=== PATIENT | male | born 1960 | race Caucasian/White ===

== ENCOUNTER → 2017-06-04 | Outpatient (CLI) | payer MEDICAID ==
[~2017-06-04] MED LIST: ACET-1600 PO; IBUP200C5 PO
[2017-06-04 13:25] LABS: ASPARTATE AMINO TRANSFERASE 22 U/L (15-37); BLOOD UREA NITROGEN 30 mg/dL (7-18)
[2017-06-04 13:37] LABS: HEMATOCRIT 45.7 % (39.2-51.8); HEMOGLOBIN 15.6 g/dL (13.7-18.0); WHITE BLOOD COUNT 6.9 x10^3/uL (3.4-10)
[2017-06-04 14:04] LABS: HIV 1&2 ANTIBODY SCREEN Nonreactive (Nonreactive); HIV-1 p24 ANTIGEN Nonreactive (Nonreactive)
== END | disposition home or self-care (01) ==
LOC: STAR 12:08 → EDBD 12:30
PROVIDERS: ATTEND Orthopaedic Surgery
DX: Z01.818 Encounter for other preprocedural examination (principal); M16.12 Unilateral primary osteoarthritis, left hip; R79.1 Abnormal coagulation profile
CPT/HCPCS: 36415; 80053; 83036; 85025; 85610; 85730; 86703; 87081; 87899; 93005; G0435

== ENCOUNTER 2018-07-12 08:45 | Inpatient (IN) | payer MEDICAID ==
[~2018-07-12] VITALS: Ht 188 cm; Wt 90.6 kg
[~2018-07-12 08:45] MED LIST changes: +EPINEPHRINE 1 MG/ML, 1ML ONE; +IBUP-1623 PO; -IBUP200C5 PO; +KETOROLAC 60 MG/2 ML ONE; +METH500T7 PO; +ROPIvacaine/PF 0.2%, 20 ML ONE; +TRAM50TA2 PO; +TRANEXAMIC ACID 100 MG/ML, 10ML ONE
[2018-07-12] MEDS ORDERED: GABAPENTIN 300 MG CAPSULE PO STA (09:26)
[2018-07-12] MEDS ORDERED: ACETAMINOPHEN 500 MG TABLET PO STA (09:26)
[2018-07-12] MEDS ORDERED: LACTATED RINGERS 1,000 ML IV SCH (09:50)
[2018-07-12] MEDS ORDERED: FENTANYL PF 250 MCG/5ML ONE (10:39)
[2018-07-12] MEDS ORDERED: MIDAZOLAM 1 MG/ML, 2ML ONE (10:39)
[2018-07-12] MEDS ORDERED: MAGNESIUM HYDROXIDE 8%, 30ML UDC PO PRN (11:30)
[2018-07-12] MEDS ORDERED: ONDANSETRON 4 MG TABLET PO PRN (11:30)
[2018-07-12] MEDS ORDERED: TRANEXAMIC ACID 1,000 MG in SODIUM CHLORIDE 0.9% 100 ML IVPB ONE (11:30)
[2018-07-12] MEDS ORDERED: ONDANSETRON 2MG/ML, 2ML IV PRN ×2 (11:30→12:00)
[2018-07-12] MEDS ORDERED: PROMETHAZINE 25 MG/ML, 1ML IM PRN (11:30)
[2018-07-12] MEDS ORDERED: PROMETHAZINE 12.5 MG SUPP PR PRN (11:30)
[2018-07-12] MEDS ORDERED: BISACODYL 10 MG SUPP PR PRN (11:30)
[2018-07-12] MEDS ORDERED: HYDROmorphone 1 MG/ML, 1ML IV PRN (11:30)
[2018-07-12] MEDS ORDERED: DIPHENHYDRAMINE 50 MG CAPSULE PO PRN (11:30)
[2018-07-12] MEDS ORDERED: ALUMINUM/MAG/SIMETHICONE 30 ML UDC PO PRN (11:30)
[2018-07-12] MEDS ORDERED: ACETAMINOPHEN 650 MG/20.3 ML UDC PO PRN (11:30)
[2018-07-12] MEDS ORDERED: SENNA/DOCUSATE TABLET PO PRN (11:30)
[2018-07-12] MEDS ORDERED: ALBUTEROL/IPRATROPIUM 2.5MG/0.5MG, 3 ML NPPB PRN (12:00)
[2018-07-12] MEDS ORDERED: MIDAZOLAM 1 MG/ML, 2ML IV PRN (12:00)
[2018-07-12] MEDS ORDERED: hydrALAzine 20 MG/ML, 1ML IV PRN (12:00)
[2018-07-12] MEDS ORDERED: MEPERIDINE/PF 25MG/0.5ML IVPush PRN (12:00)
[2018-07-12] MEDS ORDERED: PROMETHAZINE 25 MG/ML, 1ML IV PRN (12:00)
[2018-07-12] MEDS ORDERED: HYDROmorphone 2 MG/ML, 1ML IVPush PRN (12:00)
[2018-07-12] MEDS ORDERED: LABETALOL 5MG/ML, 20ML IV PRN (12:00)
[2018-07-12] MEDS ORDERED: OXYcodone 5 MG/5 ML ORAL.SOL UDC PO PRN (12:00)
[2018-07-12] MEDS ORDERED: NEOSTIGMINE 1 MG/ML, 10ML ONE (12:39)
[2018-07-12] MEDS ORDERED: GLYCOPYRROLATE 0.2MG/1ML, 5ML ONE (12:39)
[2018-07-12] MEDS ORDERED: ROCURONIUM 10MG/ML,5ML ONE (12:39)
[2018-07-12] MEDS ORDERED: PROPOFOL 10 MG/ML, 20ML ONE (12:39)
[2018-07-12] MEDS ORDERED: ONDANSETRON 2MG/ML, 2ML ONE (12:39)
[2018-07-12] MEDS ORDERED: DEXAMETHASONE 4 MG/ML, 1ML ONE (12:39)
[2018-07-12] MEDS ORDERED: SUCCINYLCHOLINE 20 MG/ML, 10ML ONE (12:39)
[2018-07-12] MEDS ORDERED: CEFAZOLIN 1,000 MG ONE (12:39)
[2018-07-12] MEDS ORDERED: FENTANYL PF 100 MCG/2ML ONE (13:04)
[2018-07-12] MEDS ORDERED: OXYcodone 5 MG/5 ML ORAL.SOL UDC ONE (13:04)
[2018-07-12] MEDS: FENTANYL PF 100 MCG/2ML IV PRN ×3 (13:08→14:25)
[2018-07-12 14:15] VITALS: BP 156/106
[2018-07-12 14:30] VITALS: BP 128/87
[2018-07-12] MEDS ORDERED: [UNRECOGNIZED DRUG - REMARK] MC SCH (15:00)
[2018-07-12] MEDS ORDERED: METHOCARBAMOL 500 MG TABLET PO PRN (15:00)
[2018-07-12] MEDS: OXYcodone IR 5MG TABLET PO PRN ×2 (17:13→22:24)
[2018-07-12] MEDS: D5%-0.45NACL+KCL 20MEQ 1,000 ML IV SCH (17:13)
[2018-07-12] MEDS: ASPIRIN 81 MG TABLET EC PO SCH (17:13)
[2018-07-12] MEDS: CEFAZOLIN PMX 1GM/50ML 50 ML IVPB SCH (19:38)
[2018-07-12] MEDS: DOCUSATE 100 MG CAPSULE PO SCH (20:04)
[2018-07-12 20:45] VITALS: BP 132/80
[2018-07-13 00:16] VITALS: BP 129/79
[2018-07-13] MEDS: D5%-0.45NACL+KCL 20MEQ 1,000 ML IV SCH (02:04)
[2018-07-13] MEDS: OXYcodone IR 5MG TABLET PO PRN ×2 (03:50→08:03)
[2018-07-13 04:43] VITALS: BP 129/85
[2018-07-13] MEDS: CEFAZOLIN PMX 1GM/50ML 50 ML IVPB SCH (04:49)
[2018-07-13] MEDS: ASPIRIN 81 MG TABLET EC PO SCH (05:56)
[2018-07-13] MEDS ORDERED: DEXAMETHASONE 4 MG/ML, 1ML IVPush SCH (06:00)
[2018-07-13 07:26] VITALS: BP 141/88
[2018-07-13] MEDS: DOCUSATE 100 MG CAPSULE PO SCH (08:03)
[2018-07-13] MEDS ORDERED: TAMSULOSIN 0.4 MG CAP.ER.24H PO SCH (09:00)
[2018-07-13] MEDS ORDERED: CELE200C PO (09:33)
[2018-07-13] MEDS ORDERED: ONDA4TAB7 PO (09:33)
[2018-07-13] MEDS ORDERED: OXYC5CAP2 PO (09:33)
[2018-07-13] MEDS ORDERED: TRAM50TA2 PO (09:33)
[2018-07-13] MEDS ORDERED: ASPI81TA45 PO (09:33)
[2018-07-13] MEDS ORDERED: DOCU-131 PO (09:33)
[2018-07-13] MEDS ORDERED: KETOROLAC 30 MG/1 ML IV SCH (14:30)
== END 2018-07-13 11:58 | disposition home or self-care (01) | DRG 470 ==
LOC: ORIP 08:49 → 4NOR 14:04 → DCLOUNGE 07-13 11:43
PROVIDERS: ADMIT Orthopaedic Surgery; ATTEND Orthopaedic Surgery
PROC: 0SRB03Z Replacement of Left Hip Joint with Ceramic Synthetic Substitute, Open Approach (ICD-10-PCS; principal; 2018-07-12 10:45)
DX: M16.12 Unilateral primary osteoarthritis, left hip (principal); Z88.8 Allergy status to other drugs, medicaments and biological substances; I10 Essential (primary) hypertension
CPT/HCPCS: 36415; 72170; 73502; J3490; 85014; 85018; 86850; 86900; 90656; C1713; G0378; J0171; J0690; J1100; J1885; J2250; J2405; J2704; J2710; J2795; J3010; C1776; J0330; J3480; J7120

== ENCOUNTER 2018-08-23 08:44 | Inpatient (IN) | payer MEDICAID ==
[~2018-08-23] VITALS: Ht 188 cm; Wt 96.2 kg
[~2018-08-23 08:44] MED LIST changes: +ASPI81TA45 PO; +CELE200C PO; +DOCU-131 PO; -EPINEPHRINE 1 MG/ML, 1ML ONE; -KETOROLAC 60 MG/2 ML ONE; +ONDA4TAB7 PO; +OXYC5CAP2 PO; -ROPIvacaine/PF 0.2%, 20 ML ONE; -TRANEXAMIC ACID 100 MG/ML, 10ML ONE
[2018-08-23] MEDS ORDERED: LORazepam 1MG TABLET PO ONE (09:30)
[2018-08-23] MEDS ORDERED: LORazepam 1MG TABLET ONE (09:37)
--- NOTE | 2018-08-23 10:02 | NUR ---
Report form JINA Connelly. Patient resting comfortably in [facility].
[2018-08-23 10:04] LABS: BASOPHILS # (AUTO) 0.02 x10^3/uL (0-0.1); BASOPHILS % (AUTO) 0 % (0-1); EOSINOPHILS # (AUTO) 0.12 x10^3/uL (0-0.4); EOSINOPHILS % (AUTO) 2 % (1-7); LYMPHOCYTES # (AUTO) 1.12 x10^3/uL (1-3.4); LYMPHOCYTES % (AUTO) 14 % (22-44); MD NO; MEAN CORPUSCULAR HEMOGLOBIN 37.1 pg (27.5-34.5); MEAN CORPUSCULAR HGB CONC 34.4 g/dL (33.2-36.2); MEAN CORPUSCULAR VOLUME 107.8 fL (81-97); MEAN PLATELET VOLUME 7.6 fL (7.4-10.4); MONOCYTES % (AUTO) 8 % (2-9); NEUTROPHILS # (AUTO) 6.18 x10^3/uL (1.8-6.8); NEUTROPHILS % (AUTO) 77 % (42-75); PLATELET COUNT 231 x10^3/uL (130-400); RED BLOOD COUNT 4.33 x10^6/uL (4.38-5.82); RED CELL DISTRIBUTION WIDTH 15.3 % (9.4-14.8)
[2018-08-23 10:11] LABS: ALANINE AMINOTRANSFERASE 36 U/L (12-78); ALBUMIN 3.5 g/dL (3.4-5.0); ANION GAP 5 mmol/L (5-15); CALCIUM 9.1 mg/dL (8.5-10.1); CHLORIDE 107 mmol/L (98-107); CREATININE 1.35 mg/dL (0.7-1.3)
[2018-08-23 10:15] LABS: ALKALINE PHOSPHATASE 72 U/L (45-117); TROPONIN I < 0.015 ng/mL (0.000-0.045)
--- NOTE | 2018-08-23 11:12 | NUR ---
Patient to [facility].
[2018-08-23] MEDS ORDERED: OMNIPAQUE 350 MG/ML, 100ML BOTTLE ONE (11:28)
[2018-08-23] MEDS ORDERED: DILTIAZEM 5 MG/ML, 5ML IVPush ONE ×2 (11:30→13:30)
[2018-08-23] MEDS ORDERED: DILTIAZEM 5 MG/ML, 5ML ONE ×2 (11:37→13:05)
--- NOTE | 2018-08-23 11:48 | NUR ---
Cardizem admin. No change in HR. BP = 117/86
--- NOTE | 2018-08-23 12:12 | NUR ---
HR now 110s. Repeat EKG shows aflutter.
[2018-08-23] MEDS ORDERED: DILTIAZEM 125 MG in DEXTROSE 5% 100 ML IV SCH (13:00)
--- NOTE | 2018-08-23 13:13 | NUR ---
HR increased to 150 again. aware. Cardizem admin.
[2018-08-23] MEDS ORDERED: ENOXAPARIN 100 MG/ML SQ ONE (13:30)
[2018-08-23] MEDS ORDERED: ENOXAPARIN 100 MG/ML ONE (13:40)
[2018-08-23] MEDS ORDERED: LABETALOL 5MG/ML, 20ML IVPush PRN (14:00)
[2018-08-23] MEDS ORDERED: DOCUSATE 100 MG CAPSULE PO PRN (14:00)
[2018-08-23] MEDS ORDERED: ONDANSETRON ODT 4 MG PO PRN (14:00)
[2018-08-23] MEDS ORDERED: ONDANSETRON 2MG/ML, 2ML IVPush PRN (14:00)
[2018-08-23] MEDS ORDERED: POLYETHYLENE GLYCOL 17 GM PACKET PO PRN (14:00)
[2018-08-23] MEDS ORDERED: ONDANSETRON 4 MG TABLET PO PRN (14:00)
[2018-08-23 14:04] VITALS: BP 126/87
[2018-08-23 14:05] VITALS: BP 126/87
[2018-08-23 14:24] LABS: FREE T4 (FREE THYROXINE) 0.82 ng/dL (0.76-1.46)
[2018-08-23] MEDS ORDERED: LORazepam 2 MG/ML, 1ML IVPush PRN (14:30)
[2018-08-23] MEDS ORDERED: LORazepam 0.5MG TABLET PO PRN (14:30)
[2018-08-23] MEDS ORDERED: LORazepam 2 MG/ML, 1ML IV PRN ×5 (14:30)
[2018-08-23] MEDS ORDERED: LORazepam 1MG TABLET PO PRN ×4 (14:30)
[2018-08-23] MEDS: DILTIAZEM 125 MG in SODIUM CHLORIDE 0.9% 100 ML IV SCH (14:41)
[2018-08-23] MEDS: NICOTINE 14MG/24 HR PATCH.TD24 TD SCH (14:42)
[2018-08-23] MEDS: THIAMINE 100MG TABLET PO SCH (14:42)
[2018-08-23] MEDS: SODIUM CHLORIDE 0.9% 1,000 ML IV SCH ×2 (14:42→23:00)
[2018-08-23] MEDS: CHLORDIAZEPOXIDE 25 MG CAPSULE PO SCH ×2 (14:42→20:24)
[2018-08-23] MEDS: FOLIC ACID 1 MG TABLET PO SCH (14:49)
[2018-08-23] MEDS ORDERED: DIGOXIN 0.25 MG/ML, 2ML ONE (15:11)
[2018-08-23] MEDS ORDERED: DIGOXIN 0.25 MG/ML, 2ML IVPush ONE (15:30)
[2018-08-23] MEDS ORDERED: SODIUM CHLORIDE 0.9%, 500ML IVBOLUS ONE (15:30)
[2018-08-23] MEDS ORDERED: METOPROLOL 1 MG/ML, 5ML IVPush PRN (17:30)
[2018-08-23] MEDS ORDERED: CYANOCOBALAMIN 1,000 MCG/ML, 1ML IM ONE (18:30)
[2018-08-23] MEDS: ASPIRIN 81 MG TABLET EC PO SCH (20:24)
[2018-08-23 20:58] VITALS: BP 112/78
[2018-08-23 22:03] LABS: MICROSCOPIC NOT IND
[2018-08-23 22:05] LABS: CULTURE INDICATED? NO
[2018-08-24 01:21] VITALS: BP 122/85
[2018-08-24] MEDS: DILTIAZEM 125 MG in SODIUM CHLORIDE 0.9% 100 ML IV SCH ×2 (02:31→12:27)
[2018-08-24] MEDS: ENOXAPARIN 100 MG/ML SQ SCH ×2 (02:31→13:37)
[2018-08-24 05:41] LABS: BASOPHILS # (AUTO) 0.03 x10^3/uL (0-0.1); BASOPHILS % (AUTO) 0 % (0-1); EOSINOPHILS # (AUTO) 0.14 x10^3/uL (0-0.4); EOSINOPHILS % (AUTO) 2 % (1-7); LYMPHOCYTES # (AUTO) 1.66 x10^3/uL (1-3.4); LYMPHOCYTES % (AUTO) 22 % (22-44); MD NO; MEAN CORPUSCULAR HEMOGLOBIN 37.6 pg (27.5-34.5); MEAN CORPUSCULAR HGB CONC 34.7 g/dL (33.2-36.2); MEAN CORPUSCULAR VOLUME 108.4 fL (81-97); MEAN PLATELET VOLUME 7.4 fL (7.4-10.4); MONOCYTES % (AUTO) 8 % (2-9); NEUTROPHILS # (AUTO) 5.04 x10^3/uL (1.8-6.8); NEUTROPHILS % (AUTO) 68 % (42-75); PLATELET COUNT 193 x10^3/uL (130-400); RED BLOOD COUNT 3.89 x10^6/uL (4.38-5.82); RED CELL DISTRIBUTION WIDTH 15.6 % (9.4-14.8)
[2018-08-24 05:50] LABS: ALBUMIN 2.9 g/dL (3.4-5.0); ANION GAP 4 mmol/L (5-15); CALCIUM 7.8 mg/dL (8.5-10.1); CHLORIDE 110 mmol/L (98-107)
[2018-08-24 06:01] LABS: ALANINE AMINOTRANSFERASE 30 U/L (12-78); ALKALINE PHOSPHATASE 60 U/L (45-117); BILIRUBIN,TOTAL 1.1 mg/dL (0.2-1.0); CREATININE 1.12 mg/dL (0.7-1.3); TOTAL PROTEIN 5.9 g/dL (6.4-8.2)
[2018-08-24 07:17] VITALS: BP 120/79
[2018-08-24] MEDS: FOLIC ACID 1 MG TABLET PO SCH (08:12)
[2018-08-24] MEDS: CHLORDIAZEPOXIDE 25 MG CAPSULE PO SCH ×2 (08:12→21:10)
[2018-08-24] MEDS: PANTOPRAZOLE 40 MG IV IVPush SCH (08:12)
[2018-08-24] MEDS: ASPIRIN 81 MG TABLET EC PO SCH ×2 (08:13→21:10)
[2018-08-24] MEDS: SENNA/DOCUSATE TABLET PO SCH (08:13)
[2018-08-24] MEDS: THIAMINE 100MG TABLET PO SCH (08:13)
[2018-08-24 08:17] VITALS: BP 127/73
[2018-08-24] MEDS ORDERED: DIGOXIN 0.25 MG/ML, 2ML IVPush ONE ×2 (13:30→18:00)
[2018-08-24] MEDS ORDERED: DIGOXIN 0.25 MG/ML, 2ML ONE (13:32)
[2018-08-24] MEDS: NICOTINE 14MG/24 HR PATCH.TD24 TD SCH (15:04)
[2018-08-24 20:06] VITALS: BP 136/80
[2018-08-25 01:01] VITALS: BP 108/65
[2018-08-25] MEDS: ENOXAPARIN 100 MG/ML SQ SCH (01:05)
[2018-08-25] MEDS: DILTIAZEM 125 MG in SODIUM CHLORIDE 0.9% 100 ML IV SCH ×2 (01:06→13:56)
[2018-08-25 06:03] LABS: BASOPHILS # (AUTO) 0.03 x10^3/uL (0-0.1); BASOPHILS % (AUTO) 0 % (0-1); EOSINOPHILS # (AUTO) 0.23 x10^3/uL (0-0.4); EOSINOPHILS % (AUTO) 3 % (1-7); LYMPHOCYTES # (AUTO) 1.68 x10^3/uL (1-3.4); LYMPHOCYTES % (AUTO) 21 % (22-44); MD NO; MEAN CORPUSCULAR HEMOGLOBIN 37.7 pg (27.5-34.5); MEAN CORPUSCULAR HGB CONC 34.8 g/dL (33.2-36.2); MEAN CORPUSCULAR VOLUME 108.4 fL (81-97); MEAN PLATELET VOLUME 7.7 fL (7.4-10.4); MONOCYTES # (AUTO) 0.62 x10^3/uL (0.2-0.8); MONOCYTES % (AUTO) 8 % (2-9); NEUTROPHILS % (AUTO) 68 % (42-75); PLATELET COUNT 183 x10^3/uL (130-400); RED BLOOD COUNT 3.89 x10^6/uL (4.38-5.82); RED CELL DISTRIBUTION WIDTH 15.4 % (9.4-14.8)
[2018-08-25 06:20] LABS: CALCIUM 8.7 mg/dL (8.5-10.1); CHLORIDE 109 mmol/L (98-107)
[2018-08-25 06:26] LABS: ALANINE AMINOTRANSFERASE 31 U/L (12-78); ALBUMIN 3.3 g/dL (3.4-5.0); ALKALINE PHOSPHATASE 61 U/L (45-117); ANION GAP 7 mmol/L (5-15); BILIRUBIN,TOTAL 0.7 mg/dL (0.2-1.0); CREATININE 1.08 mg/dL (0.7-1.3); TOTAL PROTEIN 6.4 g/dL (6.4-8.2)
[2018-08-25] MEDS ORDERED: CYANOCOBALAMIN 1,000 MCG/ML, 1ML IM ONE (07:00)
[2018-08-25 07:31] VITALS: BP_SYST 110; BP_SYST 112; BP_DIAS 74; BP_DIAS 77
[2018-08-25] MEDS: SENNA/DOCUSATE TABLET PO SCH (07:43)
[2018-08-25] MEDS: FOLIC ACID 1 MG TABLET PO SCH (07:44)
[2018-08-25] MEDS: THIAMINE 100MG TABLET PO SCH (07:44)
[2018-08-25] MEDS: CHLORDIAZEPOXIDE 25 MG CAPSULE PO SCH ×2 (07:44→20:44)
[2018-08-25] MEDS: PANTOPRAZOLE 40 MG IV IVPush SCH (07:44)
[2018-08-25] MEDS: ASPIRIN 325 MG TABLET PO SCH (07:47)
[2018-08-25] MEDS ORDERED: DIGOXIN 0.25 MG/ML, 2ML ONE (07:56)
[2018-08-25] MEDS ORDERED: DIGOXIN 0.25 MG/ML, 2ML IVPush ONE (08:00)
[2018-08-25 13:42] VITALS: BP 115/71
[2018-08-25] MEDS: NICOTINE 14MG/24 HR PATCH.TD24 TD SCH (13:56)
[2018-08-25] MEDS: DILTIAZEM 90 MG CAP.ER.12H PO SCH ×2 (15:45→20:44)
[2018-08-25 19:18] VITALS: BP 126/85
[2018-08-26 01:32] VITALS: BP 125/77
[2018-08-26 05:10] VITALS: BP 115/75
[2018-08-26] MEDS: ASPIRIN 325 MG TABLET PO SCH (05:11)
[2018-08-26] MEDS: DILTIAZEM 90 MG CAP.ER.12H PO SCH ×4 (05:11→20:29)
[2018-08-26 05:44] LABS: BASOPHILS # (AUTO) 0.03 x10^3/uL (0-0.1); BASOPHILS % (AUTO) 0 % (0-1); EOSINOPHILS # (AUTO) 0.28 x10^3/uL (0-0.4); EOSINOPHILS % (AUTO) 3 % (1-7); LYMPHOCYTES # (AUTO) 1.23 x10^3/uL (1-3.4); LYMPHOCYTES % (AUTO) 15 % (22-44); MD NO; MEAN CORPUSCULAR HEMOGLOBIN 37.8 pg (27.5-34.5); MEAN CORPUSCULAR HGB CONC 34.6 g/dL (33.2-36.2); MEAN CORPUSCULAR VOLUME 109.2 fL (81-97); MEAN PLATELET VOLUME 7.6 fL (7.4-10.4); MONOCYTES # (AUTO) 0.69 x10^3/uL (0.2-0.8); MONOCYTES % (AUTO) 8 % (2-9); NEUTROPHILS # (AUTO) 6.29 x10^3/uL (1.8-6.8); NEUTROPHILS % (AUTO) 74 % (42-75); PLATELET COUNT 190 x10^3/uL (130-400); RED BLOOD COUNT 3.97 x10^6/uL (4.38-5.82); RED CELL DISTRIBUTION WIDTH 15.3 % (9.4-14.8)
[2018-08-26 05:55] LABS: CHLORIDE 106 mmol/L (98-107)
[2018-08-26 06:02] LABS: ALANINE AMINOTRANSFERASE 37 U/L (12-78); ALBUMIN 3.3 g/dL (3.4-5.0); ALKALINE PHOSPHATASE 69 U/L (45-117); ANION GAP 6 mmol/L (5-15); BILIRUBIN,TOTAL 0.4 mg/dL (0.2-1.0); CALCIUM 9.1 mg/dL (8.5-10.1); CREATININE 1.38 mg/dL (0.7-1.3); TOTAL PROTEIN 6.7 g/dL (6.4-8.2)
[2018-08-26] MEDS ORDERED: DIGOXIN 0.25 MG/ML, 2ML IVPush ONE (06:30)
[2018-08-26 07:05] VITALS: BP 118/74
[2018-08-26] MEDS ORDERED: SODIUM CHLORIDE 0.9% 1,000ML IVBOLUS ONE ×2 (08:30→09:00)
[2018-08-26] MEDS ORDERED: SODIUM CHLORIDE 0.9% 1,000 ML IV SCH (08:30)
[2018-08-26] MEDS: PANTOPRAZOLE 40 MG IV IVPush SCH (08:36)
[2018-08-26] MEDS: SENNA/DOCUSATE TABLET PO SCH (08:38)
[2018-08-26] MEDS: CHLORDIAZEPOXIDE 25 MG CAPSULE PO SCH ×2 (08:38→20:30)
[2018-08-26] MEDS: THIAMINE 100MG TABLET PO SCH (08:38)
[2018-08-26] MEDS: FOLIC ACID 1 MG TABLET PO SCH (08:38)
[2018-08-26] MEDS ORDERED: DIGOXIN 0.125 MG TABLET PO SCH (09:00)
[2018-08-26] MEDS: METOPROLOL TARTRATE 25 MG TABLET PO SCH ×3 (10:25→20:30)
[2018-08-26 14:30] VITALS: BP 115/90
[2018-08-26] MEDS ORDERED: PROPOFOL 10 MG/ML, 20ML ONE (15:56)
[2018-08-26] MEDS: NICOTINE 14MG/24 HR PATCH.TD24 TD SCH (16:18)
[2018-08-26 20:00] VITALS: BP 119/80
[2018-08-26 20:22] VITALS: BP 145/102
[2018-08-26] MEDS: APIXABAN 5 MG TABLET PO SCH (20:30)
[2018-08-27 02:15] VITALS: BP 134/91
[2018-08-27] MEDS: METOPROLOL TARTRATE 25 MG TABLET PO SCH ×2 (04:00→12:02)
[2018-08-27] MEDS: ASPIRIN 325 MG TABLET PO SCH (05:35)
[2018-08-27] MEDS: DILTIAZEM 90 MG CAP.ER.12H PO SCH ×2 (05:35→12:09)
[2018-08-27 05:38] VITALS: BP 119/77
[2018-08-27 05:47] LABS: BASOPHILS # (AUTO) 0.02 x10^3/uL (0-0.1); BASOPHILS % (AUTO) 0 % (0-1); EOSINOPHILS # (AUTO) 0.24 x10^3/uL (0-0.4); EOSINOPHILS % (AUTO) 3 % (1-7); LYMPHOCYTES # (AUTO) 1.21 x10^3/uL (1-3.4); LYMPHOCYTES % (AUTO) 13 % (22-44); MD NO; MEAN CORPUSCULAR HEMOGLOBIN 37.6 pg (27.5-34.5); MEAN CORPUSCULAR HGB CONC 34.5 g/dL (33.2-36.2); MEAN CORPUSCULAR VOLUME 108.9 fL (81-97); MEAN PLATELET VOLUME 7.8 fL (7.4-10.4); MONOCYTES # (AUTO) 0.82 x10^3/uL (0.2-0.8); MONOCYTES % (AUTO) 9 % (2-9); NEUTROPHILS # (AUTO) 7.33 x10^3/uL (1.8-6.8); NEUTROPHILS % (AUTO) 76 % (42-75); PLATELET COUNT 171 x10^3/uL (130-400); RED BLOOD COUNT 3.55 x10^6/uL (4.38-5.82); RED CELL DISTRIBUTION WIDTH 15.7 % (9.4-14.8)
[2018-08-27 06:01] LABS: ALBUMIN 3.1 g/dL (3.4-5.0); ANION GAP 5 mmol/L (5-15); CALCIUM 8.4 mg/dL (8.5-10.1); CHLORIDE 108 mmol/L (98-107)
[2018-08-27 06:02] LABS: CREATININE 1.19 mg/dL (0.7-1.3)
[2018-08-27 07:03] VITALS: BP 127/82
[2018-08-27] MEDS: PANTOPRAZOLE 40 MG IV IVPush SCH (07:50)
[2018-08-27 08:26] LABS: TROPONIN I < 0.015 ng/mL (0.000-0.045)
[2018-08-27] MEDS: SENNA/DOCUSATE TABLET PO SCH (09:00)
[2018-08-27] MEDS ORDERED: REGADENOSON 0.4 MG/5 ML SYRINGE ONE (09:39)
[2018-08-27] MEDS: CHLORDIAZEPOXIDE 25 MG CAPSULE PO SCH (12:01)
[2018-08-27] MEDS: FOLIC ACID 1 MG TABLET PO SCH (12:01)
[2018-08-27] MEDS: APIXABAN 5 MG TABLET PO SCH (12:01)
[2018-08-27] MEDS: THIAMINE 100MG TABLET PO SCH (12:02)
[2018-08-27 13:06] VITALS: BP 118/81
[2018-08-27] MEDS ORDERED: THIA100T67 PO (14:38)
[2018-08-27] MEDS ORDERED: METO-93 PO (14:38)
[2018-08-27] MEDS ORDERED: PANT40TA5 PO (14:38)
[2018-08-27] MEDS ORDERED: DILT240C55 PO (14:38)
[2018-08-27] MEDS ORDERED: APIX5TAB PO (14:38)
[2018-08-28] MEDS ORDERED: METOPROLOL SUCCINATE 50 MG TAB.ER.24H PO SCH (06:00)
[2018-08-28] MEDS ORDERED: DILTIAZEM 240 MG CAP.ER.24H PO SCH (09:00)
[2018-08-28] MEDS ORDERED: PANTOPROZOLE 40MG TABLET PO SCH (17:00)
== END 2018-08-27 16:08 | disposition home or self-care (01) | DRG 309 ==
LOC: ED 10:08 → EDIP 13:22 → 5SO 14:06 → DCLOUNGE 08-27 15:55
PROVIDERS: ADMIT Internal Medicine; ATTEND Internal Medicine
PROC: 5A2204Z Restoration of Cardiac Rhythm, Single (ICD-10-PCS; principal; 2018-08-26 12:30)
DX: I48.92 Unspecified atrial flutter (principal); N17.9 Acute kidney failure, unspecified; D68.59 Other primary thrombophilia; D64.9 Anemia, unspecified; D75.89 Other specified diseases of blood and blood-forming organs; E53.8 Deficiency of other specified B group vitamins; F17.210 Nicotine dependence, cigarettes, uncomplicated; I48.91 Unspecified atrial fibrillation; M16.12 Unilateral primary osteoarthritis, left hip; Z79.01 Long term (current) use of anticoagulants; I10 Essential (primary) hypertension; Z80.7 Family history of other malignant neoplasms of lymphoid, hematopoietic and related tissues; Z96.642 Presence of left artificial hip joint; I77.819 Aortic ectasia, unspecified site; F10.20 Alcohol dependence, uncomplicated; Y90.9 Presence of alcohol in blood, level not specified
CPT/HCPCS: 36415; 71045; 71275; 78452; 80048; 80053; 80162; 81003; 82040; 82607; 83735; 83880; 84100; 84439; 84443; 84484; 85025; 85379; 92960; 93005; 93017; 93306; 93312; 93321; 93325; 96372; 96374; 96375; 99291; G0378; J1650; J2704; J2785; Q9967; A9502; C9113; C9898; J1160; J3420; J7030; J7040